=== PATIENT | female | born 1990 | race Caucasian/White ===

== ENCOUNTER 2016-07-11 20:24 | Emergency (ER) | payer SELFPAY ==
[~2016-07-11] VITALS: Ht 172.7 cm; Wt 96.6 kg
--- NOTE | 2016-07-11 20:32 | NUR ---
PT TO ER BED 12. ETOH FROM A FRIENDS HOUSE. COVERED IN VOMIT. BG 92 IN THE FIELD. ON MONITOR W/ STABLE VITALS. WILL MONITOR CLOSELY.
--- NOTE | 2016-07-11 20:41 | NUR ---
DR MAI AT BEDSIDE FOR EVAL.
[2016-07-11] MEDS ORDERED: IV NS 0.9% 1,000 ML ONE (20:49)
[2016-07-11] MEDS ORDERED: IV SET PRIMARY 1 EA INFUS.SET MC ONE (20:49)
[2016-07-11] MEDS: IV NS 0.9% 1,000 ML BAG IV ONE (20:57)
--- NOTE | 2016-07-11 23:32 | NUR ---
IV removed. Catheter intact and site benign. Pressure and 4x4 applied to site. No bleeding noted.
--- NOTE | 2016-07-11 23:40 | NUR ---
REPORT TO CHARGE NURSE HUDSON FOR JOZEF.
--- NOTE | 2016-07-11 23:49 | NUR ---
PT D/C HOME IN STABLE CONDITION. COUSIN ASSUMING RESPONSIBILTY.
[2016-07-11 23:51] VITALS: BP 128/77
== END 2016-07-11 23:52 | disposition home or self-care (01) ==
LOC: ER 20:25 → EDBD 20:25 → ER 23:52
DX: F10.129 Alcohol abuse with intoxication, unspecified (principal); Y90.7 Blood alcohol level of 200-239 mg/100 ml
CPT/HCPCS: 36415; 82962 ×2; 99284; A4606; G0480; J7030; Z7610